=== PATIENT | female | born 1980 | race Caucasian/White ===

== ENCOUNTER 2018-04-18 22:31 | Emergency (ER) | payer SELFPAY ==
--- NOTE | 2018-04-18 22:51 | ER Report ---
History and Physical Time Seen By MD: 22:51 Hx. of Stated Complaint: PT FOUND NEIGHBOR HEROIN OD. TOUCHED THE NEEDLE BUT NOT POKED. HPI/ROS CHIEF COMPLAINT: Toxic substance exposure HISTORY OF PRESENT ILLNESS: 37-year-old female presents to get checked out after she found a passed out heroin attic with significant drug powder on her. Patient washed her hands. Patient notes no symptoms. She notes no chest pain, shortness breath, nausea or headache. Patient did touch the needle but did not get poked. REVIEW OF SYSTEMS: Respiratory: No cough, no dyspnea. Cardiovascular: No chest pain, no palpitations. Gastrointestinal: No vomiting, no abdominal pain. Musculoskeletal: No back pain. Allergies: Uncoded Allergies: SULFA DRUGS (Allergy, Unknown, 04/18/18) Reviewed Nurses Notes: Yes Old Medical Records Reviewed: Yes Constitutional Vital Sign - Last 24 Hours 04/18/18 04/18/18 22:36 23:22 Temp 98.2 Pulse 116 86 Resp 16 16 B/P (MAP) 131/97 144/91 (108) Pulse Ox 96 95 O2 Delivery Room Air Room Air Physical Exam General Appearance: The patient is alert, has no immediate need for airway protection and no current signs of toxicity. Eyes: Pupils equal and round no injection. Oropharynx without redness or exudate Respiratory: Chest is non tender, lungs are clear to auscultation. Cardiac: regular rate and rhythm Gastrointestinal: Abdomen is soft and non tender, no masses, bowel sounds normal. Musculoskeletal: Neck: Neck is supple and non tender. Extremities have full range of motion and are non tender. Skin: No rashes or lesions. DIFFERENTIAL DIAGNOSIS: After history and physical exam differential diagnosis was considered for toxic chemical exposure Medical Decision Making ED Course/Re-evaluation ED Course Patient was admitted to an examination room. H&P was done. The differential diagnoses was considered. Patient advised to return to the ER for any worsening. Decision to Disposition Date: Apr 18, 2018 Decision to Disposition Time: 23:10 Depart Departure Latest Vital Signs Vital Signs Date Time Temp Pulse Resp B/P (MAP) Pulse Ox O2 Delivery O2 Flow Rate FiO2 04/18/18 23:22 86 16 144/91 (108) 95 Room Air 04/18/18 22:36 98.2 Impression: Primary Impression: Exposure to toxic chemical Additional Impression: Normal exam Condition: Improved Disposition: HOME OR SELF-CARE Patient Instructions: GENERAL ER DISCHARGE INSTRUCTIONS Additional Instructions: Follow-up with primary care if unimproved in 3-5 days Problem Qualifiers FRANCISCO OJEDA DO Apr 18, 2018 22:51
[2018-04-18 23:22] VITALS: BP 144/91
== END 2018-04-18 23:15 | disposition home or self-care (01) ==
LOC: ER 22:55
DX: T75.89XA Other specified effects of external causes, initial encounter (principal)
CPT/HCPCS: 99281